=== PATIENT | female | born 1950 | race Caucasian/White ===

== ENCOUNTER 2018-09-22 23:00 | Emergency (ER) | payer MEDICARE, OTHER ==
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
[2018-09-22 23:20] VITALS: BP 157/81
[2018-09-22] MEDS: IBUPROFEN 400 MG TABLET PO ONE (23:45)
--- NOTE | 2018-09-23 00:06 | Diagnostic Imaging Report ---
ESTER GUTIÉRREZ [facility] [address] [facility] [address], [place]. [address] Report Submission Date: Sep 22, 2018 11:49:14 PM CDT Patient Study Name: RADHA AMAYA Date: Sep 22, 2018 11:25:00 PM CDT Modality Type: DX Gender: F Description: HUMERUS 2 VIEWS OR MORE : 54 Institution: [facility] Physician: ESTER GUTIÉRREZ Two views left humerus Clinical history: Injury. Pain. Findings: Examination left humerus AP view with internal and external rotation demonstrates degenerative changes with narrowing of the acromioclavicular joint. There is no evident fracture and no lytic or blastic lesion. Impression: 1. Degenerative changes in the acromioclavicular joint. 2. No fracture. Electronically signed on Sep 22, 2018 11:49:14 PM CDT by: Franc WHITFIELD
== END 2018-09-22 23:50 | disposition home or self-care (01) ==
LOC: ED 23:00
DX: M79.602 Pain in left arm (principal)
CPT/HCPCS: 73060; 99282; 99283